=== PATIENT | female | born 1930 | race Two or more races ===

== ENCOUNTER 2018-03-12 13:11 | Outpatient (CLI) | payer OTHER ==
[~2018-03-12 13:11] MED LIST: ENALAPRIL MALE2.5 MG PO; FOSAMAX5 MG PO; OMEPRAZOLE10 MG PO
== END 2018-03-12 17:00 | disposition home or self-care (01) ==
LOC: RAD 13:11
DX: M17.0 Bilateral primary osteoarthritis of knee (principal); M25.562 Pain in left knee; M25.561 Pain in right knee

== ENCOUNTER 2018-03-12 14:00 | Outpatient (CLI) | payer OTHER | END 2018-03-12 14:05 | disposition home or self-care (01) | LOC: NUCLEAR 14:00 | DX: M81.0 Age-related osteoporosis without current pathological fracture (principal) ==

== ENCOUNTER 2018-06-13 11:10 | Outpatient (CLI) | payer OTHER | END 2018-06-13 11:20 | disposition home or self-care (01) | LOC: SONOGRAMA 11:10 → MAMO-SONO 11:15 → SONOGRAMA 11:20 | DX: N13.39 Other hydronephrosis (principal) ==

== ENCOUNTER 2018-06-20 11:02 | Outpatient (CLI) | payer OTHER | END 2018-06-20 11:11 | disposition home or self-care (01) | LOC: LAB 11:02 | DX: N13.39 Other hydronephrosis (principal); Z51.81 Encounter for therapeutic drug level monitoring ==

== ENCOUNTER 2018-06-21 07:27 | Outpatient (CLI) | payer OTHER | END 2018-06-21 07:40 | disposition home or self-care (01) | LOC: TOM 07:27 | DX: N13.39 Other hydronephrosis (principal) | CPT/HCPCS: 74178; Q9965 ==